=== PATIENT | male | born 1975 | race Two or more races ===

== ENCOUNTER → 2017-04-26 | Outpatient (CLI) | payer OTHER ==
--- NOTE | 2017-04-26 16:22 | RADRPT ---
PROCEDURE: XR left knee. CLINICAL INDICATION: Knee pain TECHNIQUE: AP weightbearing, PA weightbearing, lateral weightbearing and sunrise views are availa ble for review. COMPARISON: None available FINDINGS: There is mild osteoarthrosis involving the lateral tibial femoral compartment and patellofemoral com partment. This is associated with minimal osteophytosis. There is a 2 x 18 mm osteochondroma arising from the anterior aspect of the proximal fibula. The osseous structures are otherwise normal in mineralization, architecture and alignment. No fract ures are identified. The soft tissues are unremarkable. IMPRESSION: Mild osteoarthrosis involving the lateral tibial femoral compartment and patellofemoral compartment. 2 x 18 mm osteochondroma arising from the anterior aspect of the proximal fibula RPTAT: [facility] .Howard Ruiz MD, Date Time Electronically viewed and signed by .Howard Ruiz MD, on 04/26/2017 16:21 .B/
== END | disposition home or self-care (01) ==
LOC: EDBD 15:00 → HKI 16:02
PROVIDERS: ATTEND Orthopaedic Surgery
DX: M25.562 Pain in left knee (principal); S83.232A Complex tear of medial meniscus, current injury, left knee, initial encounter; S83.272A Complex tear of lateral meniscus, current injury, left knee, initial encounter
CPT/HCPCS: 73564; Z7500; G0463

== ENCOUNTER → 2017-06-28 | Outpatient (CLI) | END | disposition home or self-care (01) | DX: M25.562 Pain in left knee (principal); S83.232A Complex tear of medial meniscus, current injury, left knee, initial encounter; S83.272A Complex tear of lateral meniscus, current injury, left knee, initial encounter ==

== ENCOUNTER 2017-07-01 10:07 | Inpatient (IN) | payer OTHER ==
[2017-07-01] VITALS (8 sets, daily range): BP systolic 115–118; BP diastolic 60–69; PULSE 67–99; RESP 12–24; Ht 172.7 cm; Wt 88.0 kg
[~2017-07-01] VITALS: Ht 172.7 cm; Wt 88.0 kg
[2017-07-01] MEDS ORDERED: SOD CHLORIDE 0.9% IV SCH (11:30)
[2017-07-01] MEDS ORDERED: PREGABALIN 300 MG PO X1 PO SCH (11:30)
[2017-07-01] MEDS ORDERED: traMADOL 50 MG TAB X 1 DOSE PO SCH (11:30)
[2017-07-01] MEDS ORDERED: CEFAZOLIN 2GM/50 ML (PMX) 50 ML X1 BEFORE INCISION IVPB SCH (11:30)
[2017-07-01] MEDS ORDERED: oxyCODONE (CR) 10 MG TAB [oxyCONTIN] X1 DOSE PO SCH (11:30)
[2017-07-01] MEDS ORDERED: LACTATED RINGER'S 1,000 ML IV SCH (11:30)
[2017-07-01] MEDS ORDERED: CELECOXIB 400 MG PO X1 DOSE PO SCH (11:30)
[2017-07-01] MEDS ORDERED: TRANEXAMIC ACID IV SCH (11:30)
[2017-07-01] MEDS ORDERED: ONDANSETRON 4 MG IV X 1 DOSE IV SCH (11:30)
[2017-07-01] MEDS ORDERED: MULTI PO (11:35)
[2017-07-01] MEDS ORDERED: ROPIVACAINE 0.5 % 30 ML VIAL ONE (12:38)
[2017-07-01] MEDS ORDERED: LIDOCAINE 2%/EPI 30 ML INJ ONE (12:38)
[2017-07-01] MEDS ORDERED: morphine SULFATE/PF (10 MG/10 ML) INJ ONE (12:38)
[2017-07-01] MEDS ORDERED: KETOROLAC 30 MG INJ ONE ×2 (12:38→14:09)
[2017-07-01] MEDS ORDERED: CEFAZOLIN 1 GM INJ ONE ×2 (12:39→13:40)
[2017-07-01] MEDS ORDERED: GLYCOPYRROLATE 0.4 MG INJ ONE (12:39)
[2017-07-01] MEDS ORDERED: ROCURONIUM 50 MG INJ ONE (12:39)
[2017-07-01] MEDS ORDERED: NEOSTIGMINE 3 MG/3 ML SYRINGE ONE (12:39)
[2017-07-01] MEDS ORDERED: DEXAMETHASONE 4 MG/ML 1 ML INJ ONE (12:39)
[2017-07-01] MEDS ORDERED: FENTAnyl 50 MCG/ML VIAL ONE (12:39)
[2017-07-01] MEDS ORDERED: ONDANSETRON 4 MG INJ ONE (12:39)
[2017-07-01] MEDS ORDERED: PROPOFOL 20 ML ONE (12:39)
[2017-07-01] MEDS ORDERED: MIDAZOLAM 1 MG/ML 2 ML INJ ONE (12:39)
--- NOTE | 2017-07-01 12:56 | HPN ---
Date/Time of Note Date/Time of Note DATE: 07/01/17 TIME: 12:55 Interval H&P Admission Note Pt. seen H&P reviewed: No system changes No change from H&P on 06/28/17 by ANNA Mendez MD Jul 01, 2017 12:56
[2017-07-01] MEDS ORDERED: HYDROmorphONE (0.2 MG/ML) 10ML SYG IV PRN ×3 (13:30)
[2017-07-01] MEDS ORDERED: LABETALOL HCL 20MG INJ IV PRN (13:30)
[2017-07-01] MEDS ORDERED: ONDANSETRON 4 MG INJ IV PRN (13:30)
[2017-07-01] MEDS ORDERED: ALBUTEROL 0.083% (NEB) 2.5 MG/3 ML AMP HHN PRN (13:30)
[2017-07-01] MEDS ORDERED: DIPHENHYDRAMINE 50 MG INJ IV PRN (13:30)
[2017-07-01] MEDS ORDERED: EPHEDrine SULFATE 50 MG/5 ML SYG IV PRN (13:30)
[2017-07-01] MEDS ORDERED: MEPERIDINE 25 MG INJ IV PRN (13:30)
[2017-07-01] MEDS ORDERED: FENTAnyl 50 MCG/ML VIAL IV PRN ×3 (13:30)
[2017-07-01] MEDS ORDERED: hydrALAzine 20 MG INJ IV PRN (13:30)
[2017-07-01] MEDS ORDERED: TRIMETHOBENZAMIDE 100 MG/ML VIAL IM PRN (13:30)
[2017-07-01] MEDS ORDERED: IPRATROPIUM (NEB) 0.5 MG/2.5 ML AMP HHN PRN (13:30)
[2017-07-01] MEDS ORDERED: OXYCODONE/ACETAMINOPHEN (5/325) TAB PO PRN ×2 (13:30)
[2017-07-01] MEDS ORDERED: MIDAZOLAM 1 MG/ML 2 ML INJ IV PRN (13:30)
--- NOTE | 2017-07-01 15:23 | OPR ---
Date/Time of Note Date/Time of Note DATE: 07/01/17 TIME: 14:56 Operative Report Procedure Description DATE: 07/01/2017 PREOPERATIVE DIAGNOSIS: Left knee medial and lateral meniscal tears POSTOPERATIVE DIAGNOSIS: Left knee medial and lateral meniscal tears OPERATION PERFORMED: Left knee arthroscopy and partial medial and lateral meniscectomy SURGEON: Anna Lopez MD ANESTHESIA: Spinal plus general endotracheal intubation, plus periarticular injection ANESTHESIOLOGIST: Santi Cross M.D. TOURNIQUET TIME: 0 minutes. ESTIMATED BLOOD LOSS: Scant INTRAVENOUS FLUIDS: 1,200 cc crystalloid COMPLICATIONS: None. DISPOSITION: The patient tolerated the procedure well and was taken to the recovery room in stable condition. INDICATIONS: The patient is a 41-year-old gentleman who has had pain in the left knee with mechanical symptoms of catching and popping. An MRI confirmed a medial and lateral meniscal tear. I felt that he would benefit from a knee arthroscopy with partial medial and lateral meniscectomies The risks, benefits, and alternatives of the procedure were explained in detail to the patient. I explained the risks of the surgery to include but not be limited to, bleeding, infection; pain; stiffness; neurovascular injury with possible numbness, weakness, and/or paralysis anywhere from the knee down to the toes; fracture; ligamentous injury and possible need for future knee replacement, and anesthetic complications such as heart attack, stroke, GI bleed , pneumonia, and/or . Ample time was allowed for the patient to ask questions, all of which were addressed and answered. The patient understood the risks involved and wished to proceed. Informed consent was signed prior to the procedure. PROCEDURE: The patient's left knee was initialed with a marking pen in the preoperative area to identify the correct operative site. The patient was brought to the operating room and transferred from the [facility] to the operating table where a spinal anesthetic was administered. The patient was then anesthetized and intubated. A Elizondo catheter was placed. A timeout was performed to confirm that the left leg was the correct operative site. The patient was given 2 g of Ancef within one hour prior to the procedure. A tourniquet was placed on the operative proximal thigh. The superolateral aspect of the left knee was prepped with Betadine and I then injected 30 cc of half percent ropivacaine into the knee joint. The operative knee and lower extremity were prepped and draped in the usual sterile fashion. The entire left knee and lower extremity were prepped and draped in the usual sterile fashion. At this point standard arthroscopic portal incisions were made, one inferolateral and one inferomedial. The arthroscope was introduced into the inferolateral portal on the arthroscopy initiated. The suprapatellar pouch was inspected. There were no loose bodies or synovitis. The undersurface of the patella looked fairly healthy. 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 The medial lateral gutters were inspected. There were no loose bodies or synovitis. The medial compartment was then inspected. There was an extensive tear of the posterior horn and body of the medial meniscus with a flipped fragment underneath the body that was reduced into the joint with a probe. There was extensive grade III chondromalacia along the weightbearing aspect of the medial femoral condyle. The medial meniscus tear was debrided back to a stable edge with a combination of the biters, sara, and ArthroCare wand. It was then probed and noted to be stable. The intertrochlear notch was inspected and the ACL and PCL were normal position with no evidence of tearing. The lateral compartment was then inspected. There was a tear of the posterior horn of the lateral meniscus with a flap of cartilage flipped under the inferior surface of the meniscus that was probed and reduced into the joint and debrided back to a stable edge with a combination of the biters and sara and ArthroCare wand. There was tearing of the anterior horn of the lateral meniscus which was also debrided back to a stable edge with a combination of the shaver and ArthroCare wand. The lateral femoral condyle had some diffuse grade II chondromalacia and a focal area of grade III chondromalacia on the most lateral aspect of the weightbearing surface of the lateral femoral condyle. The lateral meniscus was probed and noted to be stable. At this point the arthroscopy was completed. The knee was irrigated through the arthroscope until the egress of fluid was free of meniscal fragments and blood. The instruments were removed. The knee was injected with a mixture half percent ropivacaine, 4 mg of Duramorph, and 30 mg of Toradol. The portal incisions were then closed with interrupted 3-0 Monocryl and 3-0 Prolene in a vertical mattress fashion. The skin edges were sealed with Dermabond. The wounds were covered with Adaptic, 4 x 4's, and wrapped with sterile cast padding and Gerardo wrap. The patient was awakened and extubated and taken to the recovery room in stable condition. ANNA LOPEZ MD Jul 01, 2017 15:23
== END 2017-07-01 17:40 | disposition home or self-care (01) | DRG 489 ==
LOC: REC 10:07
PROVIDERS: ADMIT Orthopaedic Surgery; ATTEND Orthopaedic Surgery
PROC: 0SBD4ZZ Excision of Left Knee Joint, Percutaneous Endoscopic Approach (ICD-10-PCS; 2017-07-01)
PROC: 0SBD4ZZ Excision of Left Knee Joint, Percutaneous Endoscopic Approach (ICD-10-PCS; principal; 2017-07-01 13:00)
DX: S83.282A Other tear of lateral meniscus, current injury, left knee, initial encounter (principal); I10 Essential (primary) hypertension; S83.232A Complex tear of medial meniscus, current injury, left knee, initial encounter; S83.242A Other tear of medial meniscus, current injury, left knee, initial encounter; X58.XXXA Exposure to other specified factors, initial encounter; Y92.009 Unspecified place in unspecified non-institutional (private) residence as the place of occurrence of the external cause; Z87.891 Personal history of nicotine dependence
CPT/HCPCS: 87081; J0690; J1100; J1885; J2250; J2274; J2405; J2710; J2795; J3010

== ENCOUNTER → 2017-07-09 | Outpatient (CLI) | payer OTHER ==
[~2017-07-09] MED LIST: MULTI PO
--- NOTE | 2017-07-09 10:37 | PN ---
Date/Time of Note Date/Time of Note DATE: 07/09/17 TIME: 10:35 Outpatient Progress Note HPI The patient presents today for his first postoperative evaluation. He is 8 days status post left knee arthroscopy. He is doing well overall. He is ambulating without any assistive devices and rarely is taking any pain medication. He denies any fevers or chills. He has a physical therapy appointment scheduled for later today. He presents today for his first postoperative evaluation. Physical Exam On exam today, he is alert and oriented 4, and in no acute distress. Exam of the left knee demonstrates the portal incisions to be clean, dry, and intact. Stitches are in place. He has mild soft tissue swelling. Varus and valgus forces are stable. Compartments are otherwise soft. Range of motion is 0-130 . He is neurovascularly intact distally. Allergies Coded Allergies: No Known Allergy (Unverified , 07/01/17) Assessment/Plan Assessment: 8 days status post left knee arthroscopy and partial meniscectomy Plan: The stitches removed today, and Steri-Strips were applied. He is to continue to limit his physical activity to allow more time for his knee to heal. He can however begin outpatient physical therapy 2-3 times a week. We will see him back in 4 weeks for repeat evaluation. Medications Home Meds No Active Prescriptions or Reported Meds LANCE HUBBARD PA-C Jul 09, 2017 10:37
== END | disposition home or self-care (01) ==
LOC: HKI 09:48
PROVIDERS: ATTEND Orthopaedic Surgery
DX: Z47.1 Aftercare following joint replacement surgery (principal); Z96.652 Presence of left artificial knee joint

== ENCOUNTER → 2018-05-23 | Outpatient (CLI) | END | disposition home or self-care (01) ==

== ENCOUNTER 2018-09-22 13:11 | Day surgery (SDC) | END 2018-09-22 20:43 | disposition home or self-care (01) ==